=== PATIENT | female | born 1975 | race Caucasian/White ===

== ENCOUNTER 2021-03-19 11:45 | Emergency (ER) | payer BC ==
[~2021-03-19] VITALS: Ht 165.1 cm; Wt 79.4 kg
[2021-03-19] MEDS ORDERED: LIDOCAINE HCL 1% 2 ML AMP INJ ONE (12:15)
[2021-03-19] MEDS ORDERED: ONDANSETRON HCL INJ 2MG/ML 2ML 2 MG/ML VIAL IV PRN (12:15)
[2021-03-19] MEDS ORDERED: Morphine 4mg Syringe 4 MG/ML INJ IV PRN (12:15)
[2021-03-19 12:19] LABS: BASOPHILS % 0.9 % (0.0-1.0); EOSINOPHILS # (AUTO) 0.1 (0.0-0.4); EOSINOPHILS % 2.3 % (0.0-6.0); HEMATOCRIT 39.9 % (34.2-44.1); HEMOGLOBIN 12.8 g/dL (12.0-16.0); LYMPHOCYTES # (AUTO) 1.5 (1.0-3.2); LYMPHOCYTES % 35.3 % (18.0-39.1); MEAN CORPUSCULAR HEMOGLOBIN 29.7 pg (28-32); MEAN CORPUSCULAR HGB CONC 32.1 g/dL (31-35); MEAN CORPUSCULAR VOLUME 92.6 fL (81-99); MONOCYTES # (AUTO) 0.3 (0.2-0.8); NEUTROPHILS # (AUTO) 2.3 (2.1-6.9); NEUTROPHILS % 54.3 % (38.7-80.0); PLATELET COUNT 185 x10e3/uL (140-360); RED BLOOD COUNT 4.31 x10e6/uL (3.6-5.1); RED CELL DISTRIBUTION WIDTH 12.6 % (11.7-14.4)
[2021-03-19 12:35] LABS: ALBUMIN 4.6 g/dL (3.5-5.0); ALBUMIN/GLOBULIN RATIO 1.6 (0.8-2.0); ANION GAP 13.8 mmol/L (8-16); CALCIUM 9.1 mg/dL (8.4-10.2); CREATININE, SERUM 0.72 mg/dL (0.57-1.11); POTASSIUM 3.8 mmol/L (3.5-5.1)
[2021-03-19 12:40] LABS: AMYLASE 63 U/L (25-125); LIPASE 19 U/L (8-78)
[2021-03-19 12:55] LABS: CLARITY,URINE CLEAR (CLEAR); COLOR,URINE YELLOW (YELLOW); KETONES,URINE NEGATIVE (NEGATIVE); LEUKOCYTE ESTERASE ,URINE NEGATIVE (NEGATIVE); NITRITE,URINE NEGATIVE (NEGATIVE); PROTEIN,URINE DIPSTICK NEGATIVE (NEGATIVE); URINE UROBILINOGEN 0.2 mg/dL (0.2 - 1)
[2021-03-19] MEDS ORDERED: SODIUM CHLORIDE 0.9% 50ML 50 ML ONE (13:01)
[2021-03-19] MEDS ORDERED: IOPAMIDOL 370 MG/ML 200 ML INFUS..BTL INJ ONE (13:01)
[2021-03-19 13:06] LABS: BACTERIA,URINE FEW /HPF; WBC,URINE (MAN) 0-5 /HPF (0-5)
[2021-03-19 13:07] LABS: EPITHELIAL CELLS,URINE FEW /LPF
[2021-03-19] MEDS ORDERED: PEPCID20 MG PO (14:48)
[2021-03-19] MEDS ORDERED: ONDANSETRON ODT4 MG PO (14:48)
[2021-03-19] MEDS ORDERED: DICYCLOMINE HCL20 MG PO (14:49)
== END 2021-03-19 14:56 | disposition home or self-care (01) ==
LOC: ER 11:48
DX: R10.11 Right upper quadrant pain (principal); R11.0 Nausea
CPT/HCPCS: 36415; 74177; 76705; 80053; 81001; 82150; 83690; 84702; 85025; 99284; Q9967